=== PATIENT | female | born 1990 | race Caucasian/White ===

== ENCOUNTER 2019-10-05 01:09 | Emergency (ER) | payer OTHER | END 2019-10-05 03:20 | disposition home or self-care (01) | LOC: ERS 01:09 | DX: F10.129 Alcohol abuse with intoxication, unspecified (principal); F41.9 Anxiety disorder, unspecified; F32.9 Major depressive disorder, single episode, unspecified; Z87.442 Personal history of urinary calculi | CPT/HCPCS: 99284 ==